=== PATIENT | male | born 1955 | race Caucasian/White ===

== ENCOUNTER 2021-10-28 18:10 | Emergency (ER) | payer OTHER, SELFPAY ==
[2021-10-28] VITALS (20 sets, daily range): BP systolic 134–150; BP diastolic 70–84; PULSE 81–110; RESP 8–14; TEMP 36.8–37; O2SAT 91–98
--- NOTE | 2021-10-28 18:15 | DI.CT_ITS ---
Exam(s) CT ABDOMEN PELVIS W EXAM: CT ABDOMEN PELVIS W CLINICAL HISTORY: Cramping abd pain, hematochezia. TECHNIQUE: Imaging Protocol: Axial computed tomography images with coronal and sagittal reformatted images were created and reviewed CONTRAST MATERIAL: Intravenous: Omnipaque 350 Contrast volume:100 ml Oral: no COMPARISON: No exams were available for comparison FINDINGS: ABDOMEN: Lung Bases: Normal where visualized. Liver: Question mild fatty infiltration. Normal size.. No measurable mass. Gallbladder and biliary tract: No radiodense calculus or dilation. Pancreas: Normal density, no abnormal calcifications or inflammatory process. Absent tail. Spleen: Normal. Kidneys: Normal size, contour and axis. No radiodense stones or obstructive uropathy. No masses seen. Adrenal glands: No masses seen. Abdominal Aorta: Abdominal portion non-dilated. Moderate atherosclerotic changes. PELVIS: Bladder: No gross wall thickening. No calculi.No focal mass. Bowel: No obstruction or bowel wall thickening. Appendix normal. Peritoneal cavity: No ascites, collection or mesenteric inflammatory response. Bones: Degenerative changes, most severe at L5-S1.. Reproductive organs: Within normal limits. Lymph nodes: Unremarkable. Impression: No acute abnormality. RADIATION DOSE DELIVERED: 667.69mGy.cm Total DLP DATA REPOSITORY: All CT scans at this facility are submitted to the National Radiology Data Registry (NRDR) Dose Index Registry (DIR) with the [employer] (A[employer]). RADIATION OPTIMIZATION: All CT scans at this facility use at least one of these dose optimization te chniques: automated exposure control; mA and/or kV adjustment per patient size (includes targeted exa ms where dose is matched to clinical indication); or iterative reconstruction.
--- NOTE | 2021-10-28 18:45 | W.ED.GENAD ---
Discharge Plan Disposition Patient Disposition: HOME Condition: Improving Discharge Details Clinical Impression: Hematochezia Primary Care Provider: Kevin Matos ED Provider: Jameson Sullivan Home Meds and New Rx's Prescriptions: Continued nortriptyline 75 mg Capsule 75 mg PO HS RF: 0 Discharge Instructions Additional Instructions: Your work-up in the emergency department today included blood studies with complete blood count, coagulation panel, liver function. You underwent a CT or CAT scan of the abdomen as well. Your blood counts are stable with a hematocrit of 53, platelets were 212. You were slightly dehydrated and your BUN was 23 with a creatinine of 1.0. Your CAT scan did not show any acute abdominal pathology. As we discussed, we will begin the referral process for outpatient consultation with gastroenterology. Our care management team will arrange follow-up for you this week at the [facility]. Avoid aspirin, Advil or ibuprofen products. Please observe a bland diet. Return if you develop a fever, vomiting, increasing abdominal pain, persistent or profuse bloody stools, or any other acute concerns. Medical Decision Making 66-year-old male presents from home. States he developed crampy abdominal pain this morning followed by 1 episode of easily described as bright red blood with some stool. He then had further intermittent cramping throughout the day and had 2 episodes of dark stool per rectum this afternoon. No syncope. No vomiting. States she had normal colonoscopies in the past. States she is previously been feeling well. On exam patient slightly tachycardic, is evidence of blood-tinged mucus on rectal exam. Differential diagnosis includes colitis, diverticulitis, mass. IV access established, screening labs obtained. CBC is reassuring, with probable mild hemoconcentration. The white count is 8, hematocrit of 53, platelets 212. INR of 1.1. Electrolytes reassuring, BUN 23, creatinine 1.0. CT scan obtained which does not show acute bowel pathology. Patient remained stable, his discomfort is improving. He will require outpatient colonoscopy. We will ask care management to [facility], whom [facility] at the [place] [facility]. HPI General Mode of arrival: ambulatory. Date/Time Provider Initiated Documentation: 10/28/21 18:21. Limitations to Documentation: no limitations. Information obtained by: patient. History of Present Illness 66 year old M presents to the emergency department with the chief complaint of Rectal bleeding, described as mild, Quality is described as other (Cramping), and is localized to the abdomen. Patient reports no radiation. Patient started experiencing this hour(s) No relieving factors improve symptom(s), No exacerbating factors reported . Patient notes loss of appetite, weakness and other (1 episode of bright red blood per rectum this morning. 2 episodes of dark stool this afternoon.); denies syncope. Patient did receive the following treatments prior to arrival, none Related Data Home Medications Medication Instructions Recorded Confirmed nortriptyline 75 mg PO HS 10/28/21 10/28/21 Allergies Allergy/AdvReac Type Severity Reaction Status Date / Time No Known Allergies Allergy Unverified 10/28/21 19:37 General Stated Complaint: Abd Prob YVON: 3 Review of Systems Narrative: Reports negative colonoscopy in the past. No syncope. No chest pain. 8 systems reviewed and otherwise negative. PFSH All Active Problems (Updated 10/28/21 @ 20:38 by Jameson Sullivan MD) Hematochezia (Acute) Social History Smoking/Tobacco Use Status: Former Tobacco Use Quit Date: 10/28/00 Smoking risk assessment performed?: Yes Alcohol Intake: current Alcohol Intake frequency: a few times a week Alcohol type: beer Drug use: Never Substance use type: does not use Do you feel safe at home: Yes Do you feel safe in your relationship?: Yes Exam Narrative Exam Narrative: GEN: awake, alert, oriented 3. Pleasant, well groomed, interactive. HEAD: Normocephalic, atraumatic ENT: Mucous membranes moist, oropharynx unremarkable, External ear exam unremarkable EYES: PERRL, EOMI NECK: Full ROM, no IVORY, no menigismus CHEST/RESP: Nontender, clear to auscultation bilateral, no wheeze/rhonchi/rales CARDIOVASCULAR: RRR, no murmur, rub moe. 2+ Rad pulse bilateral ABDOMEN: Soft, nontender, no mass. +Bowel sounds. Normal rectal tone, guaiac positive red-tinged mucus present. EXT: Full ROM, no edema, no rash Neuro: Grossly normal neurologic exam, conversant, interactive. Psych: Speech fluent, thoughts congruent, affect normal Course Vital Signs Vital signs: Vital Signs Temperature 37.0 C 10/28/21 18:25 Pulse 110 H 01/28/22 18:25 Respiratory Rate 14 10/28/21 18:25 Blood Pressure 149/82 H 10/28/21 18:25 Pulse Oximetry 97 10/28/21 18:25 Temperature 37.0 C 10/28/21 18:25 Temperature Source Temporal Artery Scan 10/28/21 18:25 Pulse 110 H 10/28/21 18:25 Respiratory Rate 14 10/28/21 18:25 Respiratory Effort Non-Labored 10/28/21 18:29 Blood Pressure 149/82 H 10/28/21 18:25 Blood Pressure Position Sitting 10/28/21 18:25 Pulse Oximetry 97 10/28/21 18:25 Oxygen Delivery Method Room Air 10/28/21 18:25 Oxygen Flow Rate 0 10/28/21 18:25 Pain Level 0 10/28/21 18:25 PAWSS Have you Been Recently Intoxicated or Drunk Within the Last 30 days?: No Have you Ever Experienced Previous Episodes of Alcohol Withdrawal?: No Have you ever Experienced Withdrawal Seizures?: No Have you ever Experienced Delirium Tremens(DT)s?: No Have you ever undergone Alcohol Rehabilitation Treatment (i.e, inpt ot outpatient treatment programs)?: No Have you ever Experienced Blackouts?: No Have you ever Combined Alcohol with other Downers within the last 90 days?: No Have you ever Combined Alcohol with any other Substance of Abuse during the last 90 days?: No Positive Blood Alcohol level on Presentation? [PCS.BAL]: No Evidence of Increased Autonomic Activity (i.e. HR>120, tremor, sweating, agitation, nausea)?: No Result: 0
[2021-10-28] MEDS: Normal Saline 1,000 ML 125 ML IV (19:05)
[2021-10-28 19:28] LABS: Abs Immature Grans 0.02 10^3/uL (0.0-0.06); Absolute Basophil Count 0.05 10^3/uL (0.0-0.2); Absolute Eosinophil Count 0.13 10^3/uL (0.0-0.7); Absolute Lymphocyte Count 1.27 10^3/uL (1.2-3.4); Absolute Monocyte Count 1.12 10^3/uL (0.1-0.8); Absolute Neutrophil Count 5.59 10^3/uL (1.2-6.7); Basophils % 0.6; Eosinophils % 1.6; HCT 53.8 % (40.0-50.0); HGB 17.8 g/dL (13.5-17.5); Immature Grans % 0.2; Lymphocytes % 15.5; MCH 32.5 pg (27.0-33.0); MCHC 33.1 % (32.0-36.0); MCV 98.2 fL (80-95); MPV 10.5 fL (8.0-11.0); Monocytes % 13.7; Neutrophils % 68.4; Nucleated RBC 0 %; Platelet Count 212 10^3/uL (130-400); RBC 5.48 10^6/uL (4.36-5.78); RDW 13.1 % (11.8-14.1); RDW-SD 48.3 fL; WBC 8.18 10^3/uL (4.4-10.8)
[2021-10-28 19:42] LABS: ALT 28 U/L (16-63); AST 18 U/L (15-37); Albumin 3.5 g/dL (3.4-5.0); Alkaline Phosphatase 62 U/L (46-116); Anion Gap 10.5 mmol/L (3-11); BUN 23 mg/dL (7-18); Bilirubin, Total 1.5 mg/dL (0.2-1.0); CO2 22.5 mmol/L (21.0-32.0); Calcium 8.3 mg/dL (8.5-10.1); Chloride 106 mmol/L (98-107); Glucose 116 mg/dL (74-106); INR 1.1 (0.9-1.1); PTT Activated 25.9 sec (21.0-27.5); Potassium 3.8 mmol/L (3.5-5.1); Prothrombin Time 11.1 sec (9.3-11.0); Sodium 139 mmol/L (136-145); Total Protein 6.5 g/dL (6.4-8.2)
[2021-10-28] MEDS: Omnipaque 350 MG/ML 100 ML BTL IJ (19:54)
--- NOTE | 2021-10-28 20:29 | DI.VRAD_ITS ---
PROCEDURE INFORMATION: Exam: CT Abdomen And Pelvis With Contrast Exam date and time: 10/28/2021 6:30 PM Age: 66 years old Clinical indication: Abdominal pain; Generalized; Patient HX: Cramping abd pain, hematochezia TECHNIQUE: Imaging protocol: Computed tomography of the abdomen and pelvis with contrast. Radiation optimization: All CT scans at this facility use at least one of these dose optimization techniques: automated exposure control; mA and/or kV adjustment per patient size (includes targeted exams where dose is matched to clinical indication); or iterative reconstruction. Contrast material: OMNIPAQUE 350; Contrast volume: 100 ml; Contrast route: INTRAVENOUS (IV); COMPARISON: No relevant prior studies available. FINDINGS: Lungs: Lung bases clear. Liver: Possible fatty infiltration of the liver, difficult to confidently diagnose by CT imaging after administration of intravenous contrast. Gallbladder and bile ducts: Normal appearing gallbladder. No calcified gallstones. No biliary dilatation. Pancreas: Normal-appearing pancreatic head and body. Absent pancreatic tail suggesting possible atrophy, prior insult, prior resection, or a developmental appearance. Spleen: Normal appearing spleen. Adrenal glands: Normal appearing adrenal glands. Kidneys and ureters: Normal appearing kidneys. No hydronephrosis. Stomach and bowel: No oral contrast. Stomach partially decompressed. No small bowel dilatation to suggest obstruction. Normal-appearing colon. No evidence of diverticulitis or colitis. Appendix: Normal appendix. Intraperitoneal space: No gross ascites or free air. Vasculature: Normal caliber abdominal aorta. Lymph nodes: No pathologically enlarged mesenteric, retroperitoneal, or pelvic sidewall lymph nodes. Urinary bladder: Normal appearing urinary bladder. Reproductive: Normal-sized prostate gland and seminal vesicles. Coarse prostate calcifications. Bones/joints: No acute fracture seen among the bones of the abdomen or pelvis. Small anterior osteophytes at several lumbar levels. Severe discogenic degeneration at L5-S1. 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 Soft tissues: No significant ventral or inguinal hernia. IMPRESSION: No acute bowel pathology demonstrated. Dictated and Authenticated by: Helio Guy MD. Ordering:MAGDALENA Barba MD
--- NOTE | 2021-10-28 20:42 | NUR.NOTE ---
Addendum entered by Chio Thomas 11/01/21 13:48: CM called [facility], they requested ER note and the nurse will look it over and will call the patient with an appt. Recommended appt to be soon in 3-5 days. Original Note: Referral to Care Management to get f/u at [facility] in 3-5 days for rectal bleeding.Nursing Note:
== END 2021-10-28 21:10 | disposition home or self-care (01) ==
PROVIDERS: Emergency Provider Emergency Medicine; PCP Family Medicine Adult Medicine
DX: K92.1 Melena (principal); R00.0 Tachycardia, unspecified
CPT/HCPCS: 36415; 80053; 96360; 96361; 99285; 74177; 83735; 85025; 85610; 85730; 99283; J3490